=== PATIENT | female | born 1975 | race Caucasian/White ===

== ENCOUNTER → 2018-05-07 | Outpatient (CLI) | payer OTHER | LOC: BMCIMAGING 07:22 | PROVIDERS: ATTEND Family Medicine | DX: E07.89 Other specified disorders of thyroid (principal); Z80.8 Family history of malignant neoplasm of other organs or systems | CPT/HCPCS: 76536-PO ==

== ENCOUNTER → 2018-06-18 | Outpatient (CLI) | payer OTHER | LOC: BMCIMAGING 16:33 | PROVIDERS: ATTEND Family Medicine | DX: R05 Cough (principal) ==